=== PATIENT | male | born 1955 | race Asian ===

== ENCOUNTER → 2016-09-25 13:50 | Outpatient (CLI) | payer BC ==
[~2016-09-25 13:50] MED LIST: CLARITIN 10 MG10 MG PO; MYAMBUTOL400 MG PO; RIFADIN300 MG PO; SCOT-TUSSI10 MG/5 ML PO; SINGULAIR10 MG PO; SYMBICORT 16010.2 GM INH; TESSALON PERLE100 MG PO
[2016-09-25 14:43] LABS: BASOPHILS 0.2 % (0.0-2.0); EOSINOPHILS 0.9 % (0-7); HEMATOCRIT 40.4 % (42.0-54.0); HEMOGLOBIN 14.5 g/dL (13.5-17.5); LYMPHOCYTES 29.2 % (15-50); MCH 35.4 pg (26.0-34.0); MCHC 35.9 g/dL (31.0-37.0); MCV 98.5 fL (80.0-100.0); MEAN PLATELET VOLUME 8.9 fL (7.4-10.4); MONOCYTES 13.9 % (2-11); NEUTROPHILS 55.8 % (40-80); PLATELET COUNT 227 10x3/uL (130-400); RDW 12.3 % (11.5-14.5); WBC 4.3 10x3/uL (4.8-10.8)
[2016-09-25 14:55] LABS: ALBUMIN 3.5 g/dL (3.4-5.0); BILIRUBIN - DIRECT 0.22 mg/dL (0.00-0.30); BILIRUBIN - INDIRECT 0.48 mg/dL (0.00-1.00); BILIRUBIN - TOTAL 0.7 mg/dL (0.2-1.3); PROTEIN - SERUM 7.5 g/dL (6.4-8.2)
== END | disposition home or self-care (01) ==
LOC: D.RAD 09-21 09:15
PROVIDERS: Internal Medicine Pulmonary Disease
DX: J44.9 Chronic obstructive pulmonary disease, unspecified (principal)

== ENCOUNTER → 2017-03-23 08:26 | Outpatient (CLI) | payer BC | END | disposition home or self-care (01) | LOC: D.RT 08:26 | DX: J47.9 Bronchiectasis, uncomplicated (principal) ==

== ENCOUNTER → 2017-09-17 08:57 | Outpatient (CLI) | payer BC ==
[~2017-09-17 08:57] MED LIST changes: +BIAXIN 500 MG500 MG PO; +FLOMAX0.4 MG PO; +FLUTICASONE PRO16 GM NASAL; +GLUCOPHAGE500 MG PO; +PROTONIX40 MG PO
[2017-09-17 09:37] LABS: BASOPHILS 0.2 % (0-2); EOSINOPHILS 0.4 % (0-7); HEMATOCRIT 42.6 % (42.0-54.0); HEMOGLOBIN 14.8 g/dL (13.5-17.5); IMMATURE GRANULOCYTES 0.2 % (0-5); LYMPHOCYTES 24.9 % (15-50); MCHC 34.7 g/dL (31.0-37.0); MCV 100.7 fL (80.0-100.0); NEUTROPHILS 64.3 % (40-80); PLATELET COUNT 204 10x3/uL (130-400); RBC 4.23 10x6/uL (4.20-6.10); RDW 12.4 % (11.5-14.5)
[2017-09-17 09:56] LABS: ALBUMIN 3.6 g/dL (3.4-5.0); ALKALINE PHOSPHATASE 48 U/L (46-116); ALT (SGPT) 44 U/L (10-68); BILIRUBIN - TOTAL 0.28 mg/dL (0.2-1.3); CALC OSMOLALITY 278 mosm/kg (275-300); CALCIUM 8.4 mg/dL (8.5-10.1); CARBON DIOXIDE 32.3 mmol/L (21.0-32.0); CHLORIDE - SERUM 102 mmol/L (98-107); CREATININE - SERUM 0.8 mg/dL (0.6-1.3); GLUCOSE 91 mg/dL (74-106); POTASSIUM - SERUM 3.7 mmol/L (3.5-5.1); PROTEIN - SERUM 7.9 g/dL (6.4-8.2); SODIUM 138 mmol/L (136-145); UREA NITROGEN 21 mg/dL (7-18); eGFR NON AFRICAN AMERICAN > 90 mL/min (90-120)
== END | disposition home or self-care (01) ==
LOC: D.LAB 08:57 → D.RAD 10:00
PROVIDERS: Internal Medicine Pulmonary Disease
DX: A31.0 Pulmonary mycobacterial infection (principal)

== ENCOUNTER 2017-10-20 20:30 | Inpatient (IN) | payer BC ==
[~2017-10-20] VITALS: Ht 152.4 cm; Wt 44.9 kg
[~2017-10-20 20:30] MED LIST changes: -BIAXIN 500 MG500 MG PO; -FLOMAX0.4 MG PO; -FLUTICASONE PRO16 GM NASAL; -GLUCOPHAGE500 MG PO; -PROTONIX40 MG PO
[2017-10-20 21:23] LABS: BASOPHILS 0.2 % (0-2); EOSINOPHILS 0.5 % (0-7); HEMATOCRIT 43.5 % (42.0-54.0); HEMOGLOBIN 15.3 g/dL (13.5-17.5); MCHC 35.2 g/dL (31.0-37.0); MCV 99.5 fL (80.0-100.0); MEAN PLATELET VOLUME 9.1 fL (7.4-10.4); MONOCYTES 12.9 % (2-11); NEUTROPHILS 57.4 % (40-80); PLATELET COUNT 223 10x3/uL (130-400); RBC 4.37 10x6/uL (4.20-6.10); RDW 12.2 % (11.5-14.5); WBC 5.7 10x3/uL (4.8-10.8)
[2017-10-20 21:37] LABS: ALBUMIN 3.8 g/dL (3.4-5.0); ANION GAP 13.1 mmol/L (8-16); BILIRUBIN - TOTAL 0.23 mg/dL (0.2-1.3); CALCIUM 8.5 mg/dL (8.5-10.1); CARBON DIOXIDE 30.6 mmol/L (21.0-32.0); CREATININE - SERUM 1.1 mg/dL (0.6-1.3); POTASSIUM - SERUM 3.7 mmol/L (3.5-5.1); PROTEIN - SERUM 8.1 g/dL (6.4-8.2)
[2017-10-20 22:08] LABS: INR 1.05 (0.85-1.17); PROTIME 13.3 SECONDS (11.6-15.0)
[2017-10-20 22:19] LABS: APTT 31.2 SECONDS (22.8-39.4)
[2017-10-21 04:00] VITALS: BP 149/84
[2017-10-21 08:13] VITALS: BP 163/100; BMI 10.7
[2017-10-21 08:18] VITALS: BP 150/79
[2017-10-21] MEDS ORDERED: GLUCOPHAGE500 MG PO (09:37)
[2017-10-21] MEDS ORDERED: BIAXIN 500 MG500 MG PO (09:43)
[2017-10-21] MEDS ORDERED: FLOMAX0.4 MG PO (09:45)
[2017-10-21 12:44] VITALS: BP 131/75
[2017-10-21 13:12] VITALS: BMI 19.3
[2017-10-21 16:14] VITALS: BP 129/68
[2017-10-21 17:21] VITALS: Ht 152.4 cm; Wt 44.9 kg
[2017-10-21 20:58] VITALS: BP 166/86
[2017-10-22 00:29] VITALS: BP 120/64
[2017-10-22 05:03] VITALS: BP 124/68
[2017-10-22 08:10] VITALS: BP 130/75
[2017-10-22 11:42] VITALS: BP 143/77
[2017-10-22 16:09] VITALS: BP 148/75
[2017-10-22 20:02] VITALS: BP 138/76
[2017-10-23] VITALS (7 sets, daily range): BP systolic 133–157; BP diastolic 70–82
[2017-10-24 05:00] LABS: BASOPHILS 0.3 % (0-2); EOSINOPHILS 0.9 % (0-7); HEMATOCRIT 44.5 % (42.0-54.0); HEMOGLOBIN 15.6 g/dL (13.5-17.5); IMMATURE GRANULOCYTES 0.2 % (0-5); LYMPHOCYTES 19.4 % (15-50); MCH 34.8 pg (26.0-34.0); MCHC 35.1 g/dL (31.0-37.0); MCV 99.3 fL (80.0-100.0); MEAN PLATELET VOLUME 9.3 fL (7.4-10.4); MONOCYTES 7.8 % (2-11); NEUTROPHILS 71.4 % (40-80); PLATELET COUNT 229 10x3/uL (130-400); RBC 4.48 10x6/uL (4.20-6.10); RDW 12.4 % (11.5-14.5); WBC 5.9 10x3/uL (4.8-10.8)
[2017-10-24 05:24] LABS: ALBUMIN 3.1 g/dL (3.4-5.0); ALKALINE PHOSPHATASE 40 U/L (46-116); ALT (SGPT) 29 U/L (10-68); BILIRUBIN - TOTAL 0.42 mg/dL (0.2-1.3); CALC OSMOLALITY 282 mosm/kg (275-300); CALCIUM 8.1 mg/dL (8.5-10.1); CARBON DIOXIDE 29.5 mmol/L (21.0-32.0); CHLORIDE - SERUM 103 mmol/L (98-107); POTASSIUM - SERUM 3.5 mmol/L (3.5-5.1); PROTEIN - SERUM 7.3 g/dL (6.4-8.2); SODIUM 141 mmol/L (136-145); UREA NITROGEN 17 mg/dL (7-18); eGFR NON AFRICAN AMERICAN 81 mL/min (90-120)
[2017-10-24 05:27] LABS: GLUCOSE 104 mg/dL (74-106)
[2017-10-24 08:24] VITALS: BP 129/71
[2017-10-24 12:06] VITALS: BP 142/82
[2017-10-24 22:12] VITALS: BP 150/80
[2017-10-25 02:11] VITALS: BP 142/81
[2017-10-25 05:37] LABS: BASOPHILS 0.2 % (0-2); EOSINOPHILS 0.6 % (0-7); HEMATOCRIT 45.3 % (42.0-54.0); HEMOGLOBIN 15.9 g/dL (13.5-17.5); IMMATURE GRANULOCYTES 0.2 % (0-5); LYMPHOCYTES 18.8 % (15-50); MCH 35.3 pg (26.0-34.0); MCHC 35.1 g/dL (31.0-37.0); MCV 100.4 fL (80.0-100.0); MEAN PLATELET VOLUME 8.9 fL (7.4-10.4); MONOCYTES 10.3 % (2-11); NEUTROPHILS 69.9 % (40-80); PLATELET COUNT 202 10x3/uL (130-400); RBC 4.51 10x6/uL (4.20-6.10); RDW 12.4 % (11.5-14.5); WBC 5.2 10x3/uL (4.8-10.8)
[2017-10-25 06:14] LABS: ALBUMIN 3.1 g/dL (3.4-5.0); ALKALINE PHOSPHATASE 42 U/L (46-116); ALT (SGPT) 25 U/L (10-68); CALC OSMOLALITY 272 mosm/kg (275-300); CALCIUM 8.4 mg/dL (8.5-10.1); CARBON DIOXIDE 27.1 mmol/L (21.0-32.0); CHLORIDE - SERUM 103 mmol/L (98-107); CREATININE - SERUM 0.9 mg/dL (0.6-1.3); FERRITIN 146 ng/mL (3-244); GLUCOSE 99 mg/dL (74-106); PROTEIN - SERUM 7.4 g/dL (6.4-8.2); SODIUM 136 mmol/L (136-145); UREA NITROGEN 14 mg/dL (7-18); eGFR NON AFRICAN AMERICAN > 90 mL/min (90-120)
[2017-10-25 06:15] LABS: % SATURATION 50 % (15-55); IRON 85 ug/dl (35-150); TOTAL IRON BIND CAPACITY 170 ug/dl (260-445); UNSAT IRON BIND CAPACITY 85 ug/dl (150-375)
[2017-10-25 06:23] LABS: POTASSIUM - SERUM 4.3 mmol/L (3.5-5.1)
[2017-10-25 06:42] VITALS: BP 110/50
[2017-10-25 10:36] VITALS: BP 145/72
[2017-10-25 13:35] VITALS: BP 120/74
[2017-10-25 18:39] VITALS: BP 143/85
[2017-10-25 21:19] VITALS: BP 125/68
[2017-10-26 00:41] VITALS: BP 134/64
[2017-10-26 05:01] VITALS: BP 138/74
[2017-10-26 06:13] LABS: BASOPHILS 0.2 % (0-2); EOSINOPHILS 0.7 % (0-7); HEMATOCRIT 44.6 % (42.0-54.0); HEMOGLOBIN 15.7 g/dL (13.5-17.5); IMMATURE GRANULOCYTES 0.2 % (0-5); LYMPHOCYTES 23.6 % (15-50); MCH 34.7 pg (26.0-34.0); MCHC 35.2 g/dL (31.0-37.0); MCV 98.7 fL (80.0-100.0); MEAN PLATELET VOLUME 9.3 fL (7.4-10.4); MONOCYTES 7.8 % (2-11); NEUTROPHILS 67.5 % (40-80); PLATELET COUNT 223 10x3/uL (130-400); RBC 4.52 10x6/uL (4.20-6.10); RDW 12.3 % (11.5-14.5); WBC 5.9 10x3/uL (4.8-10.8)
[2017-10-26 06:33] LABS: ALBUMIN 3.2 g/dL (3.4-5.0); ALKALINE PHOSPHATASE 40 U/L (46-116); ALT (SGPT) 27 U/L (10-68); BILIRUBIN - TOTAL 0.44 mg/dL (0.2-1.3); CALC OSMOLALITY 281 mosm/kg (275-300); CALCIUM 8.3 mg/dL (8.5-10.1); CHLORIDE - SERUM 104 mmol/L (98-107); GLUCOSE 94 mg/dL (74-106); MAGNESIUM - SERUM 2.3 mg/dL (1.8-2.4); POTASSIUM - SERUM 3.6 mmol/L (3.5-5.1); PROTEIN - SERUM 7.4 g/dL (6.4-8.2); SODIUM 141 mmol/L (136-145); UREA NITROGEN 14 mg/dL (7-18); eGFR NON AFRICAN AMERICAN 81 mL/min (90-120)
[2017-10-26 09:10] VITALS: BP 141/75
[2017-10-26 13:51] VITALS: BP 141/78
[2017-10-26 20:44] VITALS: BP 117/74
[2017-10-26 22:26] LABS: APPEARANCE CLEAR (CLEAR); BILIRUBIN NEGATIVE (NEGATIVE); COLOR YELLOW (YELLOW); GLUCOSE NEGATIVE (NEGATIVE); KETONE NEGATIVE (NEGATIVE); NITRITE NEGATIVE (NEGATIVE); PROTEIN NEGATIVE (NEGATIVE); UROBILINOGEN NORMAL (NORMAL)
[2017-10-27 04:36] LABS: BASOPHILS 0.2 % (0-2); EOSINOPHILS 0.5 % (0-7); HEMATOCRIT 46.5 % (42.0-54.0); HEMOGLOBIN 16.8 g/dL (13.5-17.5); IMMATURE GRANULOCYTES 0.2 % (0-5); LYMPHOCYTES 33.6 % (15-50); MCH 35.6 pg (26.0-34.0); MCHC 36.1 g/dL (31.0-37.0); MCV 98.5 fL (80.0-100.0); MONOCYTES 7.1 % (2-11); NEUTROPHILS 58.4 % (40-80); PLATELET COUNT 216 10x3/uL (130-400); RBC 4.72 10x6/uL (4.20-6.10); RDW 12.2 % (11.5-14.5)
[2017-10-27 04:48] LABS: ALBUMIN 3.5 g/dL (3.4-5.0); CALC OSMOLALITY 279 mosm/kg (275-300); CALCIUM 8.7 mg/dL (8.5-10.1); CARBON DIOXIDE 30.8 mmol/L (21.0-32.0); CHLORIDE - SERUM 102 mmol/L (98-107); CREATININE - SERUM 0.9 mg/dL (0.6-1.3); GLUCOSE 110 mg/dL (74-106); SODIUM 140 mmol/L (136-145); UREA NITROGEN 12 mg/dL (7-18); eGFR NON AFRICAN AMERICAN > 90 mL/min (90-120)
[2017-10-27 05:00] VITALS: BP 124/74
[2017-10-27 05:11] LABS: ALKALINE PHOSPHATASE 44 U/L (46-116); ALT (SGPT) 31 U/L (10-68); AMYLASE - SERUM 99 U/L (25-115); BILIRUBIN - TOTAL 0.65 mg/dL (0.2-1.3); LIPASE 149 U/L (73-393); POTASSIUM - SERUM 4.2 mmol/L (3.5-5.1); PROTEIN - SERUM 8.1 g/dL (6.4-8.2)
[2017-10-27 08:12] VITALS: BP 140/81
[2017-10-27 11:51] VITALS: BP 131/78
[2017-10-27 16:08] VITALS: BP 148/85
[2017-10-27 20:21] VITALS: BP 137/70
[2017-10-28 01:06] VITALS: BP 148/78
[2017-10-28 04:47] VITALS: BP 154/74
[2017-10-28 06:57] LABS: BASOPHILS 0.2 % (0-2); EOSINOPHILS 0.4 % (0-7); HEMATOCRIT 45.2 % (42.0-54.0); HEMOGLOBIN 16.4 g/dL (13.5-17.5); IMMATURE GRANULOCYTES 0.2 % (0-5); LYMPHOCYTES 25.3 % (15-50); MCH 35.5 pg (26.0-34.0); MCHC 36.3 g/dL (31.0-37.0); MCV 97.8 fL (80.0-100.0); MEAN PLATELET VOLUME 8.9 fL (7.4-10.4); MONOCYTES 6.6 % (2-11); NEUTROPHILS 67.3 % (40-80); PLATELET COUNT 215 10x3/uL (130-400); RBC 4.62 10x6/uL (4.20-6.10); RDW 12.3 % (11.5-14.5); WBC 4.9 10x3/uL (4.8-10.8)
[2017-10-28 07:20] LABS: ALBUMIN 3.3 g/dL (3.4-5.0); ALKALINE PHOSPHATASE 39 U/L (46-116); ALT (SGPT) 30 U/L (10-68); CALC OSMOLALITY 279 mosm/kg (275-300); CALCIUM 8.4 mg/dL (8.5-10.1); CHLORIDE - SERUM 102 mmol/L (98-107); CREATININE - SERUM 0.9 mg/dL (0.6-1.3); GLUCOSE 92 mg/dL (74-106); POTASSIUM - SERUM 3.8 mmol/L (3.5-5.1); PROTEIN - SERUM 7.6 g/dL (6.4-8.2); SODIUM 141 mmol/L (136-145); UREA NITROGEN 11 mg/dL (7-18); eGFR NON AFRICAN AMERICAN > 90 mL/min (90-120)
[2017-10-28 08:02] VITALS: BP 138/81
[2017-10-28 12:24] VITALS: BP 129/74
[2017-10-28] MEDS ORDERED: MYAMBUTOL400 MG PO (14:05)
[2017-10-28] MEDS ORDERED: RIFADIN300 MG PO (14:05)
[2017-10-28] MEDS ORDERED: BIAXIN 500 MG500 MG PO (14:05)
[2017-10-28] MEDS ORDERED: PROTONIX40 MG PO (14:06)
[2017-10-28] MEDS ORDERED: FLUTICASONE PRO16 GM NASAL (14:06)
== END 2017-10-28 19:01 | disposition home or self-care (01) | DRG 191 ==
LOC: D.ER 20:30 → D.MS 23:26 → D.EDHOLD 23:26 → D.MS 10-21 00:03
PROVIDERS: Emergency Medicine; Family Medicine; Internal Medicine Pulmonary Disease
DX: J47.1 Bronchiectasis with (acute) exacerbation (principal); M35.1 Other overlap syndromes; E44.0 Moderate protein-calorie malnutrition; Z68.1 Body mass index [BMI] 19.9 or less, adult; D62 Acute posthemorrhagic anemia; J01.90 Acute sinusitis, unspecified; J30.9 Allergic rhinitis, unspecified; Z87.09 Personal history of other diseases of the respiratory system; R91.1 Solitary pulmonary nodule; N40.0 Benign prostatic hyperplasia without lower urinary tract symptoms; E11.9 Type 2 diabetes mellitus without complications; A31.0 Pulmonary mycobacterial infection

== ENCOUNTER → 2018-10-14 08:15 | Outpatient (CLI) | payer BC ==
[2017-10-21 17:21] VITALS: BMI 19.3
[~2018-10-14 08:15] MED LIST changes: +BIAXIN 500 MG500 MG PO; +FLOMAX0.4 MG PO; +FLUTICASONE PRO16 GM NASAL; +GLUCOPHAGE500 MG PO; +PROTONIX40 MG PO
[2018-10-14 10:28] LABS: BASOPHILS 0.2 % (0-2); EOSINOPHILS 0.2 % (0-7); HEMATOCRIT 41.1 % (42.0-54.0); HEMOGLOBIN 14.5 g/dL (13.5-17.5); IMMATURE GRANULOCYTES 0.2 % (0-5); LYMPHOCYTES 17.9 % (15-50); MCH 34.5 pg (26.0-34.0); MCHC 35.3 g/dL (31.0-37.0); MCV 97.9 fL (80.0-100.0); MONOCYTES 10.5 % (2-11); RDW 12.7 % (11.5-14.5); WBC 5.9 10x3/uL (4.8-10.8)
[2018-10-14 10:59] LABS: PLATELET COUNT 275 10x3/uL (130-400)
== END | disposition home or self-care (01) ==
LOC: D.RT 10-13 11:00 → D.RAD 10-13 11:45 → D.LAB 10-13 13:00 → D.RT 08:15
PROVIDERS: ATTEND Internal Medicine Pulmonary Disease
DX: J44.9 Chronic obstructive pulmonary disease, unspecified (principal); E44.0 Moderate protein-calorie malnutrition; A31.0 Pulmonary mycobacterial infection

== ENCOUNTER 2019-01-23 07:46 | Inpatient (IN) | payer BC ==
[~2019-01-23] VITALS: Ht 152.4 cm; Wt 41.5 kg
[2019-01-23] MEDS ORDERED: ALBUTEROL SULF8.5 GM INH (07:59)
[2019-01-23 08:24] LABS: BASOPHILS 0.1 % (0-2); EOSINOPHILS 0 % (0-7); HEMATOCRIT 43.2 % (42.0-54.0); HEMOGLOBIN 15.4 g/dL (13.5-17.5); IMMATURE GRANULOCYTES 0.2 % (0-5); LYMPHOCYTES 6.9 % (15-50); MCH 34.4 pg (26.0-34.0); MCHC 35.6 g/dL (31.0-37.0); MCV 96.4 fL (80.0-100.0); MEAN PLATELET VOLUME 8.7 fL (7.4-10.4); NEUTROPHILS 84.8 % (40-80); RBC 4.48 10x6/uL (4.20-6.10); RDW 12.9 % (11.5-14.5); WBC 8.6 10x3/uL (4.8-10.8)
[2019-01-23 08:32] LABS: PLATELET COUNT 351 10x3/uL (130-400)
--- NOTE | 2019-01-23 08:35 | NUR ---
[facility] WE[facility] AND LANI COMPLETED
[2019-01-23 08:37] LABS: ALBUMIN 3.7 g/dL (3.4-5.0); ALKALINE PHOSPHATASE 96 U/L (46-116); ALT (SGPT) 25 U/L (10-68); BILIRUBIN - TOTAL 0.31 mg/dL (0.2-1.3); CALC OSMOLALITY 270 mosm/kg (275-300); CALCIUM 8.6 mg/dL (8.5-10.1); CARBON DIOXIDE 33.6 mmol/L (21.0-32.0); CHLORIDE - SERUM 96 mmol/L (98-107); CREATININE - SERUM 0.8 mg/dL (0.6-1.3); GLUCOSE 132 mg/dL (74-106); POTASSIUM - SERUM 3.7 mmol/L (3.5-5.1); PROTEIN - SERUM 9.3 g/dL (6.4-8.2); SODIUM 135 mmol/L (136-145); UREA NITROGEN 11 mg/dL (7-18); eGFR NON AFRICAN AMERICAN > 90 mL/min (90-120)
--- NOTE | 2019-01-23 08:50 | NUR ---
CALLED DAVID PASCUAL. SHE IS FAMILIAR WITH THIS PT. REPORTS HE HAD AFB TESTING COMPLETED ON 02/15/13 RESULTS = MACTRIUM BACTIRIUM AVIOUM "LOOKS LIKE TB, ACTS LIKE TB BUT IS NOT TB. NOT CONTAGIOUS AND NO ISOLATION REQUIRED"
--- NOTE | 2019-01-23 09:45 | NUR ---
SPUTUM CX OBTAINED, LABELED AT BS AND SENT TO LAB
[2019-01-23 09:51] LABS: INR 1.11 (0.85-1.17); PROTIME 13.8 SECONDS (11.6-15.0)
[2019-01-23 09:52] LABS: APTT 36.9 SECONDS (22.8-39.4)
--- NOTE | 2019-01-23 10:00 | NUR ---
REPORT CALLED TO DARWIN LINDSEY BY SBAR FORMAT
[2019-01-23 10:15] VITALS: BP 135/82
--- NOTE | 2019-01-23 10:20 | NUR ---
CALLED HENRY INTERPRETOR #[phone]. EXPL POC TO PT ALL QUESTIONS ANSWERED.
--- NOTE | 2019-01-23 10:20 | NUR ---
RT AT BS FOR SVN
--- NOTE | 2019-01-23 10:30 | NUR ---
TRANSPORTED TO ROOM #2104 VIS W/C CONDITION STABLE
--- NOTE | 2019-01-23 10:34 | MORECARE ---
CASE MANAGEMENT DISCHARGE SUMMARY PATIENT: WALDEMAR EAGLE UNIT: [id number] ADM DATE: 01/23/19 AGE: 63 : 57 SEX: M ROOM/BED: D.2104 AUTHOR: BETTINA PAVON PHYSICIAN: REFERRING PHYSICIAN: RANDY SAMSON MD DATE OF SERVICE: 01/23/19 Discharge Plan Patient Name: WALDEMAR EAGLE [facility] : 1955 Planned Disposition: Home Anticipated Discharge Date: 01/25/19 Discharge Date: Expected LOS: 2 Initial Reviewer: [email or web address] Initial Review Date: 01/23/2019 Generated: 01/23/19 11:34 am Patient Name: WALDEMAR EAGLE Page 08234 at 1034 All edits/amendments must be made on the electronic document DICTATION DATE: 01/23/19 1033 ELECTRICAL INTEGRATOR: JULIETA 01/23/19 1033 RPT#: [id number] DC DATE: STATUS: ADM IN [facility] [address] [place] [address] END OF REPORT
--- NOTE | 2019-01-23 12:05 | MORECARE ---
CASE MANAGEMENT DISCHARGE SUMMARY PATIENT: WALDEMAR EAGLE UNIT: [id number] ADM DATE: 01/23/19 AGE: 63 : 57 SEX: M ROOM/BED: D.2104 AUTHOR: BETTINA PAVON PHYSICIAN: REFERRING PHYSICIAN: RANDY SAMSON MD DATE OF SERVICE: 01/23/19 Discharge Plan Patient Name: WALDEMAR EAGLE [facility] [facility] 1955 Planned Disposition: Home Anticipated Discharge Date: 01/25/19 Discharge Date: Expected LOS: 2 Initial Reviewer: [email or web address] Initial Review Date: 01/23/2019 Generated: 01/23/19 1:05 pm DCPIA - Discharge Planning Initial Assessment Updated by [email or web address]: Nel De Leon on 01/23/19 11:57 am * Is the patient Alert and Oriented? Yes * How many steps to enter\exit or inside your home? One * PCP Dr. Samson * Preadmission Environment Home with Family * ADLs Independent * List name and contact numbers for known caregivers / representatives who currently or will assist patient after discharge: Marylou Orellana brother - [phone] [facility] sister - [phone] * Verbal permission to speak to the caregivers and representatives has been obtained from the patient. Yes * Community resources currently utilized None * Additional services required to return to the preadmission environment? No * Can the patient safely return to the preadmission environment? Yes * Has this patient been hospitalized within the prior 30 days at any hospital? No Last DP export: 01/23/19 9:34 a Patient Name: WALDEMAR EAGLE Page 66310 at 1205 All edits/amendments must be made on the electronic document DICTATION DATE: 01/23/19 1205 SENIOR SAS PROGRAMMER: JULIETA 01/23/19 1205 RPT#: [id number] DC DATE: STATUS: ADM IN [facility] [address] [place] [address] END OF REPORT
--- NOTE | 2019-01-23 13:04 | MORECARE ---
CASE MANAGEMENT DISCHARGE SUMMARY PATIENT: WALDEMAR EAGLE UNIT: [id number] ADM DATE: 01/23/19 AGE: 63 : 57 SEX: M ROOM/BED: D.2103 AUTHOR: LIBRADODOC PHYSICIAN: REFERRING PHYSICIAN: RANDY SAMSON MD DATE OF SERVICE: 01/23/19 Discharge Plan Patient Name: WALDEMAR EAGLE Facility: [facility]:[place] : 1955 Planned Disposition: Home Anticipated Discharge Date: 01/25/19 Discharge Date: Expected LOS: 2 Initial Reviewer: [email or web address] Initial Review Date: 01/23/2019 Generated: 01/23/19 2:03 pm Comments DCP- Discharge Planning Updated by [email or web address]: Nel De Leon on 01/23/19 11:[address] Patient Name: WALDEMAR EAGLE Admission Status: ER Accout number: [id number] Admission Date: 01-23-2019 : 1955 Admission Diagnosis: Attending: RANDY SAMSON Current LOS: 1 Anticipated DC Date: 01-25-2019 Planned Disposition: Home Primary Insurance: [employer] EXCHANGE Discharge Planning Comments: CM met with patient and his sister to complete initial dc planning assessment. The patient and his sister speak very limited Latvian and we communicated through an remigio on their cell phones. CM educated patient on the CM role and verbal consent given by patient to complete assessment. CM verified patient's address, phone number, and emergency contact phone numbers. Patient lives at home with his sister. He is independent in his care at home. At discharge patient plans to return to his sisters and feels this is a safe discharge. CM discussed availability of home health, rehab services, and medical equipment. Patient denied known discharge needs at this time. Patient reports he will transport himself home at time of discharge. CM will continue to follow and will assist as needed with dc plans/needs. Object Oriented Programmer: Nel De Leon RN, [facility] DCPIA - Discharge Planning Initial Assessment Updated by [email or web address]: Nel De Leon on 01/23/19 11:57 am * Is the patient Alert and Oriented? Yes * How many steps to enter\exit or inside your home? One * PCP Dr. Samson * Preadmission Environment Home with Family * ADLs Independent * List name and contact numbers for known caregivers / representatives who currently or will assist patient after discharge: Marylou Orellana - brother - [phone] Monicayuri Paul sister - [phone] * Verbal permission to speak to the caregivers and representatives has been obtained from the patient. Yes * Community resources currently utilized None * Additional services required to return to the preadmission environment? No * Can the patient safely return to the preadmission environment? Yes * Has this patient been hospitalized within the prior 30 days at any hospital? No Last DP export: 01/23/19 11:05 a Patient Name: WALDEMAR EAGLE Page 93357 at 1304 All edits/amendments must be made on the electronic document DICTATION DATE: 01/23/19 1303 GLASS MAKER: JULIETA 01/23/19 1303 RPT#: [id number] DC DATE: STATUS: ADM IN [facility] [address] [place] [address] END OF REPORT
[2019-01-23 13:17] VITALS: BP 130/82; BMI 18.7
--- NOTE | 2019-01-23 13:28 | NUR ---
PT ARRIVED FROM ED VIA WC. PT DOES NOT SPEAK [place]. INTERUPTER LINE AT BEDSIDE BUT PHONE WILL NOT PLUG INTO DENICE. CARMENERING NOTIFIED. TO COMMUNICATE WITH PT, HE HAS A PHONE SUE THAT TRANSLATES INTO [place]. PT IS ALERT AND AWAKE. SEE ADMISSION ASSESSMENT FOR FURTHER EVAL.
--- NOTE | 2019-01-23 19:00 | NUR ---
PATIENT SITTING UP IN BED. PATIENT DOES NOT SPEAK SINHAL[place]. SPEAKS VERY LITTLE SINHALA. AT THIS TIME PATIENT HAS NO COMPLAINTS. NO DISTRESS NOTED.
[2019-01-23 20:00] VITALS: BP 132/79
[2019-01-24 00:18] VITALS: BP 111/80
--- NOTE | 2019-01-24 02:00 | NUR ---
PATIENT LAYING IN BED. EYES CLOSED, CHEST RISING AND FALLING. NO DISTRESS NOTED.
[2019-01-24 04:00] VITALS: BP 149/85
[2019-01-24 05:19] LABS: BASOPHILS 0.2 % (0-2); EOSINOPHILS 0.2 % (0-7); HEMATOCRIT 38.9 % (42.0-54.0); HEMOGLOBIN 13.6 g/dL (13.5-17.5); IMMATURE GRANULOCYTES 0.2 % (0-5); LYMPHOCYTES 8.9 % (15-50); MCH 33.7 pg (26.0-34.0); MCV 96.3 fL (80.0-100.0); MEAN PLATELET VOLUME 8.8 fL (7.4-10.4); MONOCYTES 7.7 % (2-11); NEUTROPHILS 82.8 % (40-80); PLATELET COUNT 300 10x3/uL (130-400); RBC 4.04 10x6/uL (4.20-6.10); RDW 12.7 % (11.5-14.5)
[2019-01-24 05:30] LABS: WBC 6.4 10x3/uL (4.8-10.8)
[2019-01-24 06:02] LABS: ALBUMIN 2.9 g/dL (3.4-5.0); ALKALINE PHOSPHATASE 74 U/L (46-116); ALT (SGPT) 20 U/L (10-68); BILIRUBIN - TOTAL 0.29 mg/dL (0.2-1.3); CALC OSMOLALITY 278 mosm/kg (275-300); CALCIUM 8.1 mg/dL (8.5-10.1); CARBON DIOXIDE 30.3 mmol/L (21.0-32.0); CHLORIDE - SERUM 103 mmol/L (98-107); CREATININE - SERUM 0.7 mg/dL (0.6-1.3); GLUCOSE 112 mg/dL (74-106); POTASSIUM - SERUM 3.5 mmol/L (3.5-5.1); PROTEIN - SERUM 7.5 g/dL (6.4-8.2); SODIUM 140 mmol/L (136-145); UREA NITROGEN 9 mg/dL (7-18); eGFR NON AFRICAN AMERICAN > 90 mL/min (90-120)
--- NOTE | 2019-01-24 06:12 | NUR ---
PATIENT LAYING IN BED. EYES CLOSED, CHEST RISING AND FALLING. NO DISTRESS NOTED.
--- NOTE | 2019-01-24 07:03 | NUR ---
INITIAL ROUNDING, WHITE BOARD UPDATED. PATIENT IS AWAKE AND SEMI FOWLERS IN BED LISTENING TO HIS CELL PHONE, MAYBE THE NEWS. HE DENIES PAIN. CALL LIGHT IN REACH. NO COUGHING NOTED AT THIS TIME.
[2019-01-24 08:00] VITALS: BP 144/78
[2019-01-24 12:00] VITALS: BP 139/68
[2019-01-24 15:45] VITALS: BP 133/84
[2019-01-24 18:08] LABS: AFB SPECIMEN PROCESSING Concentration (())
--- NOTE | 2019-01-24 19:00 | NUR ---
PATIENT SITTING UP IN BED. NO COMPLAINTS AT THIS TIME. NO DISTRESS NOTED.
[2019-01-24 20:00] VITALS: BP 141/81
--- NOTE | 2019-01-24 20:30 | NUR ---
FOUND VANCOMYCIN HANGING ON PATIENT'S IV POLE. VANCOMYCIN BAG WAS FULL. CHARGE NURSE MADE AWARE. WAITING TO ADMINISTER UNTIL NEXT DOSE.
[2019-01-25] VITALS: BP 135/74
--- NOTE | 2019-01-25 03:22 | NUR ---
PATIENT LAYING IN BED. EYES CLOSED, CHEST RISING AND FALLING. NO DISTRESS NOTED.
[2019-01-25 04:00] VITALS: BP 136/82
--- NOTE | 2019-01-25 07:10 | NUR ---
INITIAL ROUNDING, WHITE BOARD UPDATED. PATIENT DENIES PAIN, CALL LIGHT IN REACH,
[2019-01-25 09:55] VITALS: BP 110/71
--- NOTE | 2019-01-25 10:16 | NUR ---
DR SAMSON HERE TO SEE PATIENT. SPUTUM SAMPLE BEING COLLECTED. WITH RESPIRATORY DIRECTOR, PATIENT DENIES ANY NEEDS/QUESTIONS
[2019-01-25 12:53] VITALS: BP 108/75
[2019-01-25 16:44] VITALS: BP 112/68
[2019-01-25 17:08] LABS: FUNGUS STAIN Final report (())
--- NOTE | 2019-01-25 19:00 | NUR ---
PATIENT LAYING IN BED. FAMILY AT BEDSIDE. NO COMPLAINTS AT THIS TIME. NO DISTRESS NOTED.
[2019-01-25 20:00] VITALS: BP 139/803; BP 147/80
[2019-01-26 04:00] VITALS: BP 136/74
--- NOTE | 2019-01-26 08:10 | NUR ---
INITIAL ROUNDING, PATIENT IN BED, LIGHTS OFF, NO RADIO ON AT THIS TIME. WHITE BOARD UPDATED AT THIS TIME. PATIENT DENIES PAIN. CALL LIGHT IN REACH
[2019-01-26 08:22] VITALS: BP 126/73
[2019-01-26 13:22] VITALS: BP 128/74
--- NOTE | 2019-01-26 17:30 | NUR ---
PATIENT GIVEN ZOFRAN AFTER HEARING HIM GAGING, SMALL AMT EMESIS BLOOD TINGED NOTED IN BLUE BAG
[2019-01-26 17:31] VITALS: BP 136/72
[2019-01-26 20:00] VITALS: BP 126/69
[2019-01-27] VITALS: BP 133/73
[2019-01-27 04:00] VITALS: BP 133/87
[2019-01-27 04:51] LABS: BASOPHILS 0.1 % (0-2); EOSINOPHILS 0.4 % (0-7); HEMATOCRIT 38.2 % (42.0-54.0); HEMOGLOBIN 13.4 g/dL (13.5-17.5); IMMATURE GRANULOCYTES 0.1 % (0-5); LYMPHOCYTES 13.5 % (15-50); MCH 33.7 pg (26.0-34.0); MCHC 35.1 g/dL (31.0-37.0); MEAN PLATELET VOLUME 8.7 fL (7.4-10.4); MONOCYTES 8.1 % (2-11); NEUTROPHILS 77.8 % (40-80); PLATELET COUNT 315 10x3/uL (130-400); RBC 3.98 10x6/uL (4.20-6.10); RDW 12.8 % (11.5-14.5); WBC 7.6 10x3/uL (4.8-10.8)
[2019-01-27 05:04] LABS: ALBUMIN 2.6 g/dL (3.4-5.0); ALKALINE PHOSPHATASE 71 U/L (46-116); ALT (SGPT) 18 U/L (10-68); AMYLASE - SERUM 97 U/L (25-115); BILIRUBIN - TOTAL 0.27 mg/dL (0.2-1.3); CALC OSMOLALITY 270 mosm/kg (275-300); CALCIUM 8.1 mg/dL (8.5-10.1); CARBON DIOXIDE 33.5 mmol/L (21.0-32.0); CHLORIDE - SERUM 100 mmol/L (98-107); CREATININE - SERUM 0.7 mg/dL (0.6-1.3); GLUCOSE 93 mg/dL (74-106); LIPASE 102 U/L (73-393); MAGNESIUM - SERUM 2.3 mg/dL (1.8-2.4); PHOSPHOROUS 3.2 mg/dL (2.5-4.9); POTASSIUM - SERUM 3.8 mmol/L (3.5-5.1); SODIUM 137 mmol/L (136-145); UREA NITROGEN 5 mg/dL (7-18); eGFR NON AFRICAN AMERICAN > 90 mL/min (90-120)
--- NOTE | 2019-01-27 05:42 | NUR ---
I have reviewed this patient and I concur with the Shift Assessment completed by the Licensed Practical Nurse today this shift.
--- NOTE | 2019-01-27 07:10 | NUR ---
REPORT RECEIVED FROM PASTRY COOK APPRENTICE AND PATIENT CARE ASSUMED. PATIENT LAYING IN BED ON BACK WITH EYES CLOSED AND BREATHING EVENLY. PATIENT IS STABLE AND VSS. WILL CONTINUE WITH PLAN OF CARE.
[2019-01-27 09:49] VITALS: BP 121/71
[2019-01-27 11:08] VITALS: Ht 152.4 cm; Wt 41.5 kg
[2019-01-27 12:21] VITALS: BP 150/84
--- NOTE | 2019-01-27 17:30 | NUR ---
PATIENT IS STABLE AND UNCHANGED. PATIENT DENIES ANY NEEDS OR PAIN. WILL CONTINUE TO MONITOR.
[2019-01-27 17:31] VITALS: BP 145/76
[2019-01-27 18:08] LABS: ACID FAST SMEAR Negative (()); AFB SPECIMEN PROCESSING Concentration (())
--- NOTE | 2019-01-27 19:40 | NUR ---
PT IS RESTING IN BED WITH EYES OPEN. PT SMILES WHEN SPOKEN TO. REPORTED THAT PT DOES NOT SPEAK ANY HUNGARIAN. HE IS ALERT. NO ACUTE DISTRESS NOTED. IV IS INFUSING TO LFA WITHOUT DIFFICULTY. NO REDNESS OR EDEMA NOTED AT THE INSERTION SITE. TELEMETRY UNIT IS ON AND INTACT. SR'S ARE UP X 2 IN BED. CALL LIGHT AND BEDSIDE TABLE ARE WITHIN EASY REACH. PT STATED "THANK YOU" WHEN I WAS EXITING THE ROOM.
[2019-01-27 20:00] VITALS: BP 118/76
--- NOTE | 2019-01-27 22:29 | NUR ---
PT IS RESTING IN BED WATCHING TV. NO ACUTE DISTRESS NOTED.
[2019-01-28] VITALS: BP 121/72
--- NOTE | 2019-01-28 01:56 | NUR ---
RESTING IN BED WITH EYES CLOSED.
--- NOTE | 2019-01-28 03:59 | NUR ---
I have reviewed this patient and I concur with the Shift Assessment completed by the Licensed Practical Nurse today this shift.
[2019-01-28 04:28] LABS: BASOPHILS 0.2 % (0-2); EOSINOPHILS 0.9 % (0-7); HEMATOCRIT 38.9 % (42.0-54.0); HEMOGLOBIN 13.6 g/dL (13.5-17.5); IMMATURE GRANULOCYTES 0.2 % (0-5); LYMPHOCYTES 16.7 % (15-50); MCH 33.5 pg (26.0-34.0); MCV 95.8 fL (80.0-100.0); MEAN PLATELET VOLUME 8.5 fL (7.4-10.4); MONOCYTES 11.7 % (2-11); NEUTROPHILS 70.3 % (40-80); PLATELET COUNT 295 10x3/uL (130-400); RBC 4.06 10x6/uL (4.20-6.10); RDW 12.6 % (11.5-14.5)
[2019-01-28 04:30] VITALS: BP 115/69
[2019-01-28 04:43] LABS: WBC 5.5 10x3/uL (4.8-10.8)
[2019-01-28 04:52] LABS: CALC OSMOLALITY 266 mosm/kg (275-300); CALCIUM 8.3 mg/dL (8.5-10.1); CARBON DIOXIDE 32.3 mmol/L (21.0-32.0); CHLORIDE - SERUM 100 mmol/L (98-107); CREATININE - SERUM 0.7 mg/dL (0.6-1.3); GLUCOSE 105 mg/dL (74-106); MAGNESIUM - SERUM 2.3 mg/dL (1.8-2.4); PHOSPHOROUS 3.3 mg/dL (2.5-4.9); POTASSIUM - SERUM 3.9 mmol/L (3.5-5.1); SODIUM 135 mmol/L (136-145); UREA NITROGEN 5 mg/dL (7-18); eGFR NON AFRICAN AMERICAN > 90 mL/min (90-120)
--- NOTE | 2019-01-28 07:19 | NUR ---
PT AWAKE AND ORIENTED TO THE BEST OF MY KNOWLEDGE. STATES NO COMPLAINTS OR CONCERNS THIS MORNING. NO FAMILY AT BEDSIDE. CL IN REACH, SRX2.
[2019-01-28 08:06] VITALS: BP 116/78
[2019-01-28 12:26] VITALS: BP 120/74
[2019-01-28 15:59] VITALS: BP 122/79
--- NOTE | 2019-01-28 16:20 | NUR ---
PT HAS BEEN AWAKE AND ORIENTED. HE DID THROW UP ONCE THIS MORNING BUT USED THE RADAR TECHNICIAN PHONE TO TELL US THAT IT IS BECAUSE HE CAN'T TAKE HIS METPHORMIN WITH HIS OTHER PILLS, HE NEEDS TO TKAE IT SEPERATELY SO THAT HE WILL NOT BECOME NAUSEATED. NO COMPLAINTS/CONCERNS VOICED TODAY, NO FAMILY PRESENT AT THIS TIME OR THROUGHOUT THE DAY. CL IN REACH, SRX2.
[2019-01-28 20:00] VITALS: BP 134/81
--- NOTE | 2019-01-28 23:17 | NUR ---
INITIAL ROUNDS COMPLETED AT 1915 HRS. DENIES ANY DISCOMFORT. PT SPEAKS VERY LITTLE SWEDISH AND USES A DIRECTOR PRINT PHONE WHEN NEEDED. ASSESSMENT COMPLETED AT 2014 HRS. VSS. ALERT AND ORIENTED. LUNGS CTA. SR PER CM HR 73. ABD SOFT WITH ACTIVE BS NOTED. PALPABLE PERIPHERAL PULSES. IV TO LFA WITH D51/2NS AT 75CC/HR. IV PATENT. IV TO RFA SL. PM MEDS GIVEN. PT VOMITING BILE INTO TRASH CAN AT 2255 H RS. ZOFRAN 4MG SIVP GIVEN. PT CURRENTLY RESTING WITH EYES CLOSED. RESP EVEN AND REGULAR. SR UP X2, CALL LIGHT WITHIN REACH.
[2019-01-29] VITALS: BP 133/82
--- NOTE | 2019-01-29 00:14 | NUR ---
PT RESTING WITH EYES CLOSED. RESP EVEN AND REGULAR. SR UP X2, CALL LIGHT WITHIN REACH.
--- NOTE | 2019-01-29 02:17 | NUR ---
PT RESTING WITH EYES CLOSED. RESP EVEN AND REGULAR. SR UP X2, CALL LIGHT WITHIN REACH.
--- NOTE | 2019-01-29 04:03 | NUR ---
PT RESTING WITH EYES CLOSED. RESP EVEN AND REGULAR. SR UP X2, CALL LIGHT WITHIN REACH.
[2019-01-29 04:30] VITALS: BP 129/79
[2019-01-29 05:13] LABS: BASOPHILS 0.1 % (0-2); EOSINOPHILS 0.3 % (0-7); HEMATOCRIT 43.5 % (42.0-54.0); HEMOGLOBIN 15.3 g/dL (13.5-17.5); IMMATURE GRANULOCYTES 0.2 % (0-5); LYMPHOCYTES 25.8 % (15-50); MCH 34.2 pg (26.0-34.0); MCHC 35.2 g/dL (31.0-37.0); MCV 97.3 fL (80.0-100.0); MEAN PLATELET VOLUME 8.8 fL (7.4-10.4); MONOCYTES 9.7 % (2-11); NEUTROPHILS 63.9 % (40-80); PLATELET COUNT 322 10x3/uL (130-400); RBC 4.47 10x6/uL (4.20-6.10); RDW 12.7 % (11.5-14.5)
[2019-01-29 05:18] LABS: WBC 8.6 10x3/uL (4.8-10.8)
[2019-01-29 05:23] LABS: CALC OSMOLALITY 269 mosm/kg (275-300); CALCIUM 8.9 mg/dL (8.5-10.1); CARBON DIOXIDE 34.9 mmol/L (21.0-32.0); CHLORIDE - SERUM 98 mmol/L (98-107); GLUCOSE 116 mg/dL (74-106); POTASSIUM - SERUM 3.8 mmol/L (3.5-5.1); SODIUM 136 mmol/L (136-145); UREA NITROGEN 5 mg/dL (7-18)
[2019-01-29 05:33] LABS: CREATININE - SERUM 0.9 mg/dL (0.6-1.3); eGFR NON AFRICAN AMERICAN > 90 mL/min (90-120)
--- NOTE | 2019-01-29 06:28 | NUR ---
VSS THROUGHOUT NIGHT. SR PER CM. ZOFRAN ALLEVIATED PT'S N.V. NEEDS MET; WILL CONTINUE TO MONITOR.
--- NOTE | 2019-01-29 07:09 | NUR ---
PT AWAKE AND ORIENTED, LYING IN BED RECIEVING A BREATHING TX. NO COMPLAINTS CONCERNS OR QUESTIONS THIS A.M. CL IN REACH,SR X2.
[2019-01-29 08:49] VITALS: BP 120/70
--- NOTE | 2019-01-29 10:44 | NUR ---
PT REQUESTED TO TAKE HIS OTHER MEDICATIONS ABOUT 30 MINUTES AFTER HIS METFORMIN TO HELP KEEP HIM FROM GETTNIG NAUSEOUS. OBLIGED. NO COMPLAINTS/CONCERNS/QUESTIOSN AT THIS TIME. CL IN REACH, SRX2.
[2019-01-29] MEDS ORDERED: CIPRO500 MG PO (12:20)
--- NOTE | 2019-01-29 12:38 | NUR ---
I have reviewed this patient and I concur with the Shift Assessment completed by the Licensed Practical Nurse today this shift.
--- NOTE | 2019-01-29 12:41 | NUR ---
REFILLS OF CLARITIN DNIKOLAI ISSUED PER DR PACE. CALLED TO [facility], ALONG WITH TIERNEY ALBERTS, SPOKE WITH GREG.
--- NOTE | 2019-01-29 13:59 | NUR ---
GAVE PT DISCHARGE INSTRUCTIONS, SON TRANSLATED VIA PHONE
--- NOTE | 2019-01-29 15:34 | NUR ---
ESSCORTED OUT VIA WHEELCHAIR TO POV.
--- NOTE | 2019-01-30 08:22 | MORECARE ---
CASE MANAGEMENT DISCHARGE SUMMARY PATIENT: WALDEMAR EAGLE UNIT: [id number] ADM DATE: 01/23/19 AGE: 63 : 57 SEX: M ROOM/BED: D.2109 AUTHOR: BETTINA PAVON PHYSICIAN: REFERRING PHYSICIAN: RANDY SAMSON MD DATE OF SERVICE: 01/30/19 Discharge Plan Patient Name: WALDEMAR EAGLE Facility: [facility]:[place] : 1955 Planned Disposition: Home Anticipated Discharge Date: 01/25/19 Discharge Date: 01/29/2019 Expected LOS: 2 Initial Reviewer: [email or web address] Initial Review Date: 01/23/2019 Generated: 01/30/19 9:22 am Comments DCP- Discharge Planning Updated by [email or web address]: Nel De Leon on 01/23/19 11:[address] Patient Name: WALDEMAR EAGLE Admission Status: ER Accout number: [id number] Admission Date: 01-23-2019 : 1955 Admission Diagnosis: Attending: RANDY SAMSON Current LOS: 1 Anticipated DC Date: 01-25-2019 Planned Disposition: Home Primary Insurance: [employer] EXCHANGE Discharge Planning Comments: CM met with patient and his sister to complete initial dc planning assessment. The patient and his sister speak very limited Citizen Of [place] and we communicated through an remigio on their cell phones. CM educated patient on the CM role and verbal consent given by patient to complete assessment. CM verified patient's address, phone number, and emergency contact phone numbers. Patient lives at home with his sister. He is independent in his care at home. At discharge patient plans to return to his sisters and feels this is a safe discharge. CM discussed availability of home health, rehab services, and medical equipment. Patient denied known discharge needs at this time. Patient reports he will transport himself home at time of discharge. CM will continue to follow and will assist as needed with dc plans/needs. Wood Gang Sawyer: Nel De Leon RN, [facility] DCPIA - Discharge Planning Initial Assessment Updated by [email or web address]: Nel De Leon on 01/23/19 11:57 am * Is the patient Alert and Oriented? Yes * How many steps to enter\exit or inside your home? One * PCP Dr. Samson * Preadmission Environment Home with Family * ADLs Independent * List name and contact numbers for known caregivers / representatives who currently or will assist patient after discharge: Marylou Orellana - brother - [phone] Monicayuri Paul sister - [phone] * Verbal permission to speak to the caregivers and representatives has been obtained from the patient. Yes * Community resources currently utilized None * Additional services required to return to the preadmission environment? No * Can the patient safely return to the preadmission environment? Yes * Has this patient been hospitalized within the prior 30 days at any hospital? No Last DP export: 01/23/19 12:03 p Patient Name: WALDEMAR EAGLE Page 52466 at 0822 All edits/amendments must be made on the electronic document DICTATION DATE: 01/30/19821 CARPENTER CRADLE AND DOLLY: JULIETA 01/30/19821 RPT#: [id number] DC DATE:01/29/19 STATUS: DIS IN [facility] [address] [place] [address] END OF REPORT
[2019-01-30 15:09] LABS: FUNGUS MYCOLOGY CULTURE Preliminary report (())
[2019-02-02 09:10] LABS: FUNGUS MYCOLOGY CULTURE Preliminary report (())
[2019-02-03 13:10] LABS: FUNGUS CULTURE RESULT 1 Candida albicans (())
[2019-02-05 13:08] LABS: ACID FAST CULTURE Positive (()); ACID FAST SMEAR Positive (())
[2019-02-06 16:08] LABS: FUNGUS STAIN Final report (())
== END 2019-01-29 15:34 | disposition home or self-care (01) | DRG 178 ==
LOC: D.ER 07:46 → D.M2 09:48
PROVIDERS: Family Medicine; Internal Medicine Pulmonary Disease; ADMIT Family Medicine; ATTEND Family Medicine
DX: A31.0 Pulmonary mycobacterial infection (principal); E44.0 Moderate protein-calorie malnutrition; Z68.1 Body mass index [BMI] 19.9 or less, adult; J47.1 Bronchiectasis with (acute) exacerbation; J45.901 Unspecified asthma with (acute) exacerbation; J47.0 Bronchiectasis with acute lower respiratory infection; J30.9 Allergic rhinitis, unspecified; N40.0 Benign prostatic hyperplasia without lower urinary tract symptoms; J15.6 Pneumonia due to other Gram-negative bacteria; E11.9 Type 2 diabetes mellitus without complications

== ENCOUNTER → 2019-07-18 07:44 | Outpatient (CLI) | payer MEDICAID ==
[2019-01-27 11:08] VITALS: BMI 19.6
[~2019-07-18 07:44] MED LIST changes: +ALBUTEROL SULF8.5 GM INH; +CIPRO500 MG PO
[2019-07-18 08:15] LABS: BASOPHILS 0.2 % (0-2); EOSINOPHILS 0.2 % (0-7); HEMATOCRIT 42.5 % (42.0-54.0); HEMOGLOBIN 14.7 g/dL (13.5-17.5); IMMATURE GRANULOCYTES 0.2 % (0-5); LYMPHOCYTES 16.2 % (15-50); MCH 34.3 pg (26.0-34.0); MCHC 34.6 g/dL (31.0-37.0); MCV 99.1 fL (80.0-100.0); MEAN PLATELET VOLUME 8.4 fL (7.4-10.4); MONOCYTES 14.5 % (2-11); NEUTROPHILS 68.7 % (40-80); PLATELET COUNT 331 10x3/uL (130-400); RBC 4.29 10x6/uL (4.20-6.10); RDW 12.4 % (11.5-14.5); WBC 5.4 10x3/uL (4.8-10.8)
[2019-07-18 08:32] LABS: ALBUMIN 3.4 g/dL (3.4-5.0); ALKALINE PHOSPHATASE 93 U/L (46-116); ALT (SGPT) 26 U/L (10-68); BILIRUBIN - TOTAL 0.16 mg/dL (0.2-1.3); CALC OSMOLALITY 272 mosm/kg (275-300); CALCIUM 8.2 mg/dL (8.5-10.1); CARBON DIOXIDE 35.4 mmol/L (21.0-32.0); CHLORIDE - SERUM 99 mmol/L (98-107); CREATININE - SERUM 0.6 mg/dL (0.6-1.3); GLUCOSE 132 mg/dL (74-106); POTASSIUM - SERUM 3.9 mmol/L (3.5-5.1); PROTEIN - SERUM 7.9 g/dL (6.4-8.2); SODIUM 136 mmol/L (136-145); UREA NITROGEN 9 mg/dL (7-18); eGFR NON AFRICAN AMERICAN > 90 mL/min (90-120)
== END | disposition home or self-care (01) ==
LOC: D.RAD 07:44
PROVIDERS: ATTEND Internal Medicine Pulmonary Disease
DX: J44.9 Chronic obstructive pulmonary disease, unspecified (principal); A31.0 Pulmonary mycobacterial infection

== ENCOUNTER 2020-12-04 11:10 | Inpatient (IN) | payer MEDICARE ==
[~2020-12-04] VITALS: Ht 165.1 cm; Wt 41.0 kg
--- NOTE | 2020-12-04 11:25 | NUR ---
ARRIVED TO ROOM 2201 AT THIS TIME VIA WC AWAKE AND ALERT. RESP EVEN AND UNLABORED WITH NO DISTRESS NOTED. NO C/O VOICED AT THIS TIME. PT DOESN'T SPEAK ANY TAMAZIGHT. ASSESSMENT DONE. C/L IN REACH AT BEDSIDE.
[2020-12-04] MEDS ORDERED: MUCINEX600 MG PO (11:47)
[2020-12-04] MEDS ORDERED: SPIRIVA RESPIMAT4 GM INH (11:52)
[2020-12-04] MEDS ORDERED: IPRAT-ALBUT 0.5-3 ML UPD (12:02)
[2020-12-04 12:26] VITALS: BP 136/91
[2020-12-04 12:59] VITALS: BP 136/91; BMI 15.0
[2020-12-04 14:15] LABS: BASOPHILS 0.5 % (0-2); EOSINOPHILS 1.3 % (0-7); HEMATOCRIT 32.3 % (42.0-54.0); HEMOGLOBIN 10.8 g/dL (13.5-17.5); LYMPHOCYTES 3.6 % (15-50); MCH 31.2 pg (26.0-34.0); MCHC 33.3 g/dL (31.0-37.0); MCV 93.6 fL (80.0-100.0); MEAN PLATELET VOLUME 5.8 fL (7.4-10.4); MONOCYTES 8.9 % (2-11); NEUTROPHILS 85.7 % (40-80); RBC 3.45 10x6/uL (4.20-6.10); RDW 13.6 % (11.5-14.5)
[2020-12-04 14:22] LABS: CALC OSMOLALITY 261 mosm/kg (275-300); CALCIUM 8.1 mg/dL (8.5-10.1); CARBON DIOXIDE 30.5 mmol/L (21.0-32.0); CHLORIDE - SERUM 93 mmol/L (98-107); CREATININE - SERUM 0.7 mg/dL (0.6-1.3); POTASSIUM - SERUM 3.8 mmol/L (3.5-5.1); SODIUM 128 mmol/L (136-145); UREA NITROGEN 11 mg/dL (7-18); eGFR NON AFRICAN AMERICAN > 90 mL/min (90-120)
[2020-12-04 14:24] LABS: GLUCOSE 209 mg/dL (74-106)
[2020-12-04 14:28] LABS: ALBUMIN 2.2 g/dL (3.4-5.0); ALKALINE PHOSPHATASE 81 U/L (30-120); ALT (SGPT) 19 U/L (10-68); PROTEIN - SERUM 8.3 g/dL (6.4-8.2)
[2020-12-04 14:42] LABS: PLATELET COUNT 560 10x3/uL (130-400)
[2020-12-04 17:02] VITALS: BP 163/85
[2020-12-04 20:00] VITALS: BP 128/76
[2020-12-05] VITALS: BP 122/66
--- NOTE | 2020-12-05 01:56 | NUR ---
REC'D CHGE OF SHIFT WALKING ROUNDS SITTING ON SIDE OF BED.FAMILY MEMBER AT BEDSIDE.DENIES ANY PAIN AT PRESENT TIME.DOES C/O SOME SOB ON MINIMA ACTIVITY. DENIES ANY RESP. DIFFICULTIES AT PRESENT TIME. 02 SATS 93% ON ROOM AIR.WILL CONTINUE TO MONITOR FOR ANY CHGES. RESP, STATUS AND FOLLOW CURRENT PLAN OF CARE.
[2020-12-05 04:00] VITALS: BP 149/85
--- NOTE | 2020-12-05 06:50 | NUR ---
YFN DONE THIS AM FOR 20 MINUTES. PATIENT TOLERATED WELL.
[2020-12-05 07:20] LABS: CALC OSMOLALITY 267 mosm/kg (275-300); CALCIUM 8.7 mg/dL (8.5-10.1); CARBON DIOXIDE 32.9 mmol/L (21.0-32.0); CHLORIDE - SERUM 94 mmol/L (98-107); CREATININE - SERUM 0.7 mg/dL (0.6-1.3); GLUCOSE 115 mg/dL (74-106); HEMOGLOBIN 11.9 g/dL (13.5-17.5); MEAN PLATELET VOLUME 6.8 fL (7.4-10.4); POTASSIUM - SERUM 3.5 mmol/L (3.5-5.1); PRE-ALBUMIN 10.6 mg/dL (18.0-35.7); SODIUM 134 mmol/L (136-145); UREA NITROGEN 10 mg/dL (7-18); eGFR NON AFRICAN AMERICAN > 90 mL/min (90-120)
[2020-12-05 07:22] LABS: BASOPHILS 0.2 % (0-2); EOSINOPHILS 0.6 % (0-7); HEMATOCRIT 35.9 % (42.0-54.0); LYMPHOCYTES 7.6 % (15-50); MCH 31.2 pg (26.0-34.0); MCHC 33.1 g/dL (31.0-37.0); MCV 94.3 fL (80.0-100.0); MONOCYTES 8.8 % (2-11); NEUTROPHILS 82.8 % (40-80); RBC 3.81 10x6/uL (4.20-6.10); RDW 13.5 % (11.5-14.5)
[2020-12-05 07:32] LABS: PLATELET COUNT 380 10x3/uL (130-400); WBC 12.7 10x3/uL (4.8-10.8)
--- NOTE | 2020-12-05 08:00 | NUR ---
ALERT AND ORIENTED AND ABLE TO COMMUNICATE WITH ASSSIST OF RESPIRATORY CARE FACULTY PHONE. RESP EVEN WITH DYSPNEA W/O EXERTION. O2 SAT 97%RA. DIMINISHED TO BLQ ANTERIOR. UP ADLIB TO BATHROOM ATTEMPTED EDUCATION UNSUCCESSFUL WITH INCENTIVE SPIROMETRY. ENCOURAGED TO USE CALL LIGHT FOR ASSIST.
[2020-12-05 08:27] VITALS: BP 139/78
[2020-12-05 12:37] VITALS: BP 157/73
[2020-12-05 13:31] VITALS: Ht 165.1 cm; Wt 41.0 kg
--- NOTE | 2020-12-05 13:54 | MORECARE ---
CASE MANAGEMENT DISCHARGE SUMMARY PATIENT: WALDEMAR EAGLE UNIT: [id number] ADM DATE: 12/04/20 AGE: 65 : 56 SEX: M ROOM/BED: D.2201 AUTHOR: LIBRADO,DOC PHYSICIAN: REFERRING PHYSICIAN: RANDY SAMSON MD DATE OF SERVICE: 12/05/20 Case Management Discharge Planning Summary COMMENTS ENTERED DATE: 12/05/20 13:47 CT COMMENT TYPE: Discharge Planning REVIEWER: Whitney Sandhu SENT AN ORDER AND REFERRAL TO [facility] FOR THE RESP VEST THAT DR PACE ORDERED DCP REVIEW SUMMARY ANTICIPATED D/C DATE: EXPECTED LOS : CASE STATUS: DCP Initiated INITIAL REVIEW: 12/04/2020 INITIAL REVIEWER: Whitney Sandhu FINAL DISCHARGE DISPOSITION: : FINAL REVIEWER: FINAL REVIEW DATE: DCP Focus Questions & Answers QUESTION: ANSWER : PATIENT: WALDEMAR EAGLE ENCOUNTER: [id number] MEDICAL RECORD#: [id number] ADMISSION DATE: 12/04/2020 DISCHARGE DATE: ATTENDING MD: RANDY SANTILLAN : AGE: 65 MARITAL STATUS: M DC PLAN ID: [id number] FACILITY: [facility] PRINTED ON: 12/05/20 13:54 CT All edits/amendments must be made on the electronic document DICTATION DATE: 12/05/20 135 MANTEL CRAFTSMAN: JULIETA 12/05/20 135 RPT#: [id number] DC DATE: STATUS: ADM IN [facility] [address] [place] [address] END OF REPORT
[2020-12-05 16:50] VITALS: BP 139/77
--- NOTE | 2020-12-05 23:11 | NUR ---
ASSESSED AT THE BEGINNING OF THE SHIFT. PT IS ALERT AND ORIENTED BUT SPEAKS VERY LITTLE MARSHALLESE. SO FAR EVERYTHING HAS GONE WELL. HE TOOK HIS MEDS AND IS UP AD HILARIA TO THE BATHROOM. HIS BLOOD SUGAR WAS 132 AND DID NOT REQUIRE COVERAGE. FOUND ONE TIME GETTING TO PLUG OF BED BECAUSE IT WAS PUSHED OUT BY BED AND CONTROLS NOT WORKING. ASSISTED WITH THIS AND MADE SURE IT WAS WORKING AND BED WOULD NOT HIT PLUG AGAIN.
[2020-12-06 07:50] LABS: BASOPHILS 0.1 % (0-2); EOSINOPHILS 0 % (0-7); HEMATOCRIT 34.4 % (42.0-54.0); HEMOGLOBIN 11.4 g/dL (13.5-17.5); LYMPHOCYTES 7.1 % (15-50); MCH 31.2 pg (26.0-34.0); MCHC 33.2 g/dL (31.0-37.0); MCV 93.9 fL (80.0-100.0); MEAN PLATELET VOLUME 7.3 fL (7.4-10.4); MONOCYTES 2.9 % (2-11); NEUTROPHILS 89.9 % (40-80); RBC 3.67 10x6/uL (4.20-6.10); RDW 13.9 % (11.5-14.5)
[2020-12-06 08:04] LABS: PLATELET COUNT 479 10x3/uL (130-400); WBC 6.5 10x3/uL (4.8-10.8)
[2020-12-06 08:06] LABS: CALC OSMOLALITY 271 mosm/kg (275-300); CALCIUM 8.3 mg/dL (8.5-10.1); CARBON DIOXIDE 28.6 mmol/L (21.0-32.0); CHLORIDE - SERUM 96 mmol/L (98-107); CREATININE - SERUM 0.9 mg/dL (0.6-1.3); GLUCOSE 145 mg/dL (74-106); POTASSIUM - SERUM 3.7 mmol/L (3.5-5.1); SODIUM 134 mmol/L (136-145); UREA NITROGEN 14 mg/dL (7-18); eGFR NON AFRICAN AMERICAN 90 mL/min (90-120)
[2020-12-06 08:48] VITALS: BP 129/67
[2020-12-06 12:56] VITALS: BP 123/66
[2020-12-06 16:54] VITALS: BP 130/68
[2020-12-06 20:00] VITALS: BP 147/84
[2020-12-06 20:07] LABS: ACID FAST SMEAR Negative (()); AFB SPECIMEN PROCESSING Concentration (())
--- NOTE | 2020-12-06 23:19 | NUR ---
ASSESSED AT THE BEGINNING OF THE SHIFT. PT IS ALERT AND ORIENTED, BUT KNOWS VERY LITTLE MONTENEGRIN. HE IS UP TO THE BATHROOM AD HILARIA WITHOUT ASSIST AND IS ON ROOM AIR. RESP PUT THE VIBRATING VEST ON HIM WHICH HE COMPLETED ORDERED. ALL MEDS WERE TAKEN AND WHEN ASKED IF HER WAS HURTING HE INDICATED NO. HIS BLOOD SUGAR WAS 147 AND HE DID NOT NEED ANY REGULAR INSULIN. LANTUS WAS GIVEN. RESTING QUIET AT THIS TIME.
[2020-12-07 07:40] LABS: CALC OSMOLALITY 272 mosm/kg (275-300); CALCIUM 8.3 mg/dL (8.5-10.1); CARBON DIOXIDE 29.3 mmol/L (21.0-32.0); CHLORIDE - SERUM 99 mmol/L (98-107); GLUCOSE 156 mg/dL (74-106); POTASSIUM - SERUM 3.7 mmol/L (3.5-5.1); SODIUM 135 mmol/L (136-145); UREA NITROGEN 12 mg/dL (7-18)
[2020-12-07 07:41] LABS: BASOPHILS 0.1 % (0-2); CREATININE - SERUM 0.6 mg/dL (0.6-1.3); EOSINOPHILS 0 % (0-7); HEMATOCRIT 32.6 % (42.0-54.0); HEMOGLOBIN 11.1 g/dL (13.5-17.5); LYMPHOCYTES 2.8 % (15-50); MCH 31.8 pg (26.0-34.0); MCHC 34.1 g/dL (31.0-37.0); MCV 93.4 fL (80.0-100.0); MEAN PLATELET VOLUME 6.9 fL (7.4-10.4); MONOCYTES 2.5 % (2-11); NEUTROPHILS 94.6 % (40-80); PLATELET COUNT 464 10x3/uL (130-400); RBC 3.49 10x6/uL (4.20-6.10); RDW 13.7 % (11.5-14.5); eGFR NON AFRICAN AMERICAN > 90 mL/min (90-120)
[2020-12-07 08:00] LABS: WBC 9.2 10x3/uL (4.8-10.8)
[2020-12-07 09:47] VITALS: BP 151/83
[2020-12-07 13:56] VITALS: BP 142/88
--- NOTE | 2020-12-07 14:48 | NUR ---
ALERT AND ORIENTED WITH SLIGHT SHORMESS OF BREATH WITH MINIMAL EXERTION. ABLE TO DEMEONSTRATE PROPER TECHNIQUE WITH INCENTIVE SPIROMETRY. EXPIRATORY WHEEZE NOTED TO RLQ POSTERIOR. TYLENOL GIVEN FOR 6/10 PAIN IN RLQ CHEST AND EFFECTIVE 2/10. ENCOURAGED TO USE CALL LIGHT FOR ASSIST.
[2020-12-07 18:30] VITALS: BP 121/75
--- NOTE | 2020-12-07 19:17 | NUR ---
PATIENT RESTING IN BED WITH NO S/S OF DISTRESS AND DENIES NEEDS AT THIS TIME. BED IN LOWEST POSITION AND CALL LIGHT IN REACH. ENCOURAGED PATIENT TO CALL WITH NEEDS.
[2020-12-07 20:00] VITALS: BP 133/73
--- NOTE | 2020-12-07 20:12 | NUR ---
ADMINISTERED MEDS PER ORDERS. PATIENT GASPER WELL. ENCOURAGED PATIENT TO CALL WITH NEEDS.
[2020-12-08 05:00] VITALS: BP 154/80
[2020-12-08 06:16] LABS: BASOPHILS 0.1 % (0-2); EOSINOPHILS 0.1 % (0-7); HEMATOCRIT 36.7 % (42.0-54.0); HEMOGLOBIN 12.4 g/dL (13.5-17.5); MCH 31.8 pg (26.0-34.0); MCHC 33.9 g/dL (31.0-37.0); MCV 93.9 fL (80.0-100.0); MEAN PLATELET VOLUME 5.8 fL (7.4-10.4); MONOCYTES 7.1 % (2-11); NEUTROPHILS 87.7 % (40-80); RBC 3.91 10x6/uL (4.20-6.10); RDW 13.8 % (11.5-14.5); WBC 9.7 10x3/uL (4.8-10.8)
[2020-12-08 06:37] LABS: CALC OSMOLALITY 266 mosm/kg (275-300); CALCIUM 8.5 mg/dL (8.5-10.1); CARBON DIOXIDE 34.5 mmol/L (21.0-32.0); CHLORIDE - SERUM 97 mmol/L (98-107); CREATININE - SERUM 0.6 mg/dL (0.6-1.3); POTASSIUM - SERUM 3.3 mmol/L (3.5-5.1); SODIUM 134 mmol/L (136-145); UREA NITROGEN 13 mg/dL (7-18); eGFR NON AFRICAN AMERICAN > 90 mL/min (90-120)
[2020-12-08 06:39] LABS: GLUCOSE 86 mg/dL (74-106)
[2020-12-08 06:46] LABS: PLATELET COUNT 623 10x3/uL (130-400)
--- NOTE | 2020-12-08 11:58 | NUR ---
SPOKE TO PATIENT N REGARDS TO APPOINTMENTS IN LR TO SEE SPECIALISTS THAT HE MISSED LAST YEAR, PATIENT STATED THAT HE IS UNABLE TO DRIVE AND HIS FAMILY IS TOO BUSY TO TAKE HIM. ASKED PATIENT IF HE HAD A RIDE IF HE WOULD GO, PATIENT STATED YES ABSOLUTELY WILL RELAY MESSAGE TO [facility]GEMENT INSTRU[facility]
[2020-12-08 12:04] VITALS: BP 147/800
[2020-12-08 17:32] VITALS: BP 164/95
--- NOTE | 2020-12-08 19:20 | NUR ---
PATIENT RESTING IN BED WITH EYES CLOSED AND NO S/S OF DISTRESS. BED IN LOWEST POSITION AND CALL LIGHT IN REACH.
--- NOTE | 2020-12-08 21:08 | NUR ---
ADMINISTERED MEDS PER ORDERS. PATIENT GASPER WELL. ENCOURAGED TO CALL WITH NEEDS.
[2020-12-09 06:23] LABS: BASOPHILS 0.2 % (0-2); EOSINOPHILS 0 % (0-7); HEMATOCRIT 36.5 % (42.0-54.0); HEMOGLOBIN 12.6 g/dL (13.5-17.5); LYMPHOCYTES 5.4 % (15-50); MCH 32.3 pg (26.0-34.0); MCHC 34.5 g/dL (31.0-37.0); MCV 93.6 fL (80.0-100.0); MEAN PLATELET VOLUME 6.2 fL (7.4-10.4); MONOCYTES 8.3 % (2-11); NEUTROPHILS 86.1 % (40-80); PLATELET COUNT 637 10x3/uL (130-400); RDW 13.9 % (11.5-14.5); WBC 9.3 10x3/uL (4.8-10.8)
--- NOTE | 2020-12-09 07:10 | NUR ---
PT RESTING QUIETLY IN BED. RESP UNLABORED AT THIS TIME. DENIES PAIN AT THIS TIME. IV TO LEFT FOREARM WITH NS @ 30ML/HR INFUSING VIA PUMP. SITE WITHOUT REDNESS OR EDEMA. PT DENIES FURTHER NEEDS AT THIS TIME. CL WITHIN REACH. ENCOURAGED TO CALL WITH NEEDS. CONTINUE POC
[2020-12-09 07:11] LABS: CALC OSMOLALITY 267 mosm/kg (275-300); CALCIUM 8.5 mg/dL (8.5-10.1); CARBON DIOXIDE 35.1 mmol/L (21.0-32.0); CHLORIDE - SERUM 97 mmol/L (98-107); CREATININE - SERUM 0.7 mg/dL (0.6-1.3); GLUCOSE 83 mg/dL (74-106); POTASSIUM - SERUM 3.7 mmol/L (3.5-5.1); SODIUM 134 mmol/L (136-145); UREA NITROGEN 15 mg/dL (7-18); eGFR NON AFRICAN AMERICAN > 90 mL/min (90-120)
[2020-12-09 08:51] VITALS: BP 170/95
[2020-12-09 12:37] VITALS: BP 168/98
[2020-12-09] MEDS ORDERED: DIFLUCAN200 MG PO (15:24)
[2020-12-09] MEDS ORDERED: LEVOFLOXACIN500 MG PO (15:24)
[2020-12-09] MEDS ORDERED: CLINDAMYCIN HC300 MG PO (15:26)
[2020-12-09] MEDS ORDERED: STERAPRED DS 1210 MG PO (15:29)
--- NOTE | 2020-12-09 19:30 | NUR ---
PATIENT RESTING IN BED AND DENIES NEEDS AT THIS TIME. BED IN LOWEST POSITION AND CALL LIGHT IN REACH. ENCOURAGED PATIENT TO CALL WITH NEEDS.
[2020-12-09 20:00] VITALS: BP 151/83
--- NOTE | 2020-12-09 20:22 | NUR ---
ADMINISTERED MEDS PER ORDERS. PATIENT GASPER WELL. ENCOURAGED TO CALL WITH NEEDS.
[2020-12-10] VITALS: BP 162/87
[2020-12-10 04:00] VITALS: BP 152/72
--- NOTE | 2020-12-10 05:08 | NUR ---
PATIENT GLUCOSE, 46. GAVE PATIENT A SNACK AND MILK
--- NOTE | 2020-12-10 07:22 | NUR ---
RESTING IN BED WITH EYES CLOSED, EASILY AROUSED TO SPEECH. IV LOCATED TO LEFT FOREARM CURRENTLY SL. NO CURRENT S/S OF DISTRESS AT THIS TIME, PT DENIES CURRENT NEEDS, WILL CONT TO MONITOR.
[2020-12-10 08:36] VITALS: BP 135/88
--- NOTE | 2020-12-10 10:30 | NUR ---
FSBS CHECK WAS 251 REFUSED INSULIN,"GOING HOME NOW", BROTHER REFUSED WHEELCHAIR STATING "HE CAN WALK FINE TO CAR" IV OUT CATHETER TIP IN PLACE, NO CONCERNS NOTED.
--- NOTE | 2020-12-10 10:43 | MORECARE ---
CASE MANAGEMENT DISCHARGE SUMMARY PATIENT: WALDEMAR EAGLE UNIT: [id number] ADM DATE: 12/04/20 AGE: 65 : 56 SEX: M ROOM/BED: D.2201 AUTHOR: LBIRADO,DOC PHYSICIAN: REFERRING PHYSICIAN: RANDY SAMSON MD DATE OF SERVICE: 12/10/20 Case Management Discharge Planning Summary COMMENTS ENTERED DATE: 12/05/20 13:47 CT COMMENT TYPE: Discharge Planning REVIEWER: Whitney Sandhu SENT AN ORDER AND REFERRAL TO [facility] FOR THE RESP VEST THAT DR PACE ORDERED DCP REVIEW SUMMARY ANTICIPATED D/C DATE: EXPECTED LOS : CASE STATUS: DCP Initiated INITIAL REVIEW: 12/04/2020 INITIAL REVIEWER: Whitney Sandhu FINAL DISCHARGE DISPOSITION: : FINAL REVIEWER: FINAL REVIEW DATE: DCP Focus Questions & Answers QUESTION: ANSWER : PATIENT: WALDEMAR EAGLE ENCOUNTER: [id number] MEDICAL RECORD#: [id number] ADMISSION DATE: 12/04/2020 DISCHARGE DATE: 12/10/2020 ATTENDING MD: RANDY SANTILLAN : AGE: 65 MARITAL STATUS: M DC PLAN ID: [id number] FACILITY: [facility] PRINTED ON: 12/10/20 10:43 CT All edits/amendments must be made on the electronic document DICTATION DATE: 12/10/203 MEDICAL LABORATORY TECHNICIAN: JULIETA 12/10/20 1043 RPT#: [id number] DC DATE:12/10/20 STATUS: DIS IN [facility] [id number] [place] [address] END OF REPORT
--- NOTE | 2020-12-10 13:11 | MORECARE ---
CASE MANAGEMENT DISCHARGE SUMMARY PATIENT: WALDEMAR EAGLE UNIT: [id number] ADM DATE: 12/04/20 AGE: 65 : 57 SEX: M ROOM/BED: D.2201 AUTHOR: LIBRADO,DOC PHYSICIAN: REFERRING PHYSICIAN: RANDY SAMSON MD DATE OF SERVICE: 12/10/20 Case Management Discharge Planning Summary COMMENTS ENTERED DATE: 12/10/20 13:05 CT COMMENT TYPE: Discharge Planning REVIEWER: Whitney Sandhu LATE ENTRY 12/10/20 @ 1000 PATIENT'S BROTHER IN ROOM, IMM SERVED AND EXPLAINED. PATIENT LIVES AT [place] ON [address] HIS BROTHERS NUMBER IS [phone] PER MONSE WITH [facility], HIS VEST WILL BE DELIVERED AND SET UP TO HIS HOME TOMORROW IT WAS ORDERED THIS PAST WEDNESDAY. I EXPLAINED THIS TO HIS BROTHER PENNIE [phone] ( BROTHER) I CALLED MONSE TO LET HER KNOW ABOUT THE APARTMENT NUMBER ENTERED DATE: 12/05/20 13:47 CT COMMENT TYPE: Discharge Planning REVIEWER: Whitney Sandhu SENT AN ORDER AND REFERRAL TO [facility] FOR THE RESP VEST THAT DR PACE ORDERED DCP REVIEW SUMMARY ANTICIPATED D/C DATE: EXPECTED LOS : CASE STATUS: DCP Initiated INITIAL REVIEW: 12/04/2020 INITIAL REVIEWER: Whitney Sandhu FINAL DISCHARGE DISPOSITION: : FINAL REVIEWER: FINAL REVIEW DATE: DCP Focus Questions & Answers QUESTION: ANSWER : PATIENT: WALDEMAR EAGLE ENCOUNTER: [id number] MEDICAL RECORD#: [id number] ADMISSION DATE: 12/04/2020 DISCHARGE DATE: 12/10/2020 ATTENDING MD: RANDY SANTILLAN : AGE: 65 MARITAL STATUS: M DC PLAN ID: [id number] FACILITY: [facility] PRINTED ON: 12/10/20 13:11 CT All edits/amendments must be made on the electronic document DICTATION DATE: 12/10/20 1311 LEAD CLINICAL RESEARCH COORDINATOR: JULIETA 12/10/20 1311 RPT#: [id number] DC DATE:12/10/20 STATUS: DIS IN [facility] [address] [place] [address] END OF REPORT
== END 2020-12-10 10:31 | disposition home or self-care (01) | DRG 190 ==
LOC: D.MS 11:10
PROVIDERS: Internal Medicine Pulmonary Disease; ADMIT Family Medicine; ATTEND Family Medicine
DX: J47.0 Bronchiectasis with acute lower respiratory infection (principal); E43 Unspecified severe protein-calorie malnutrition; Z68.1 Body mass index [BMI] 19.9 or less, adult; E87.1 Hypo-osmolality and hyponatremia; J18.9 Pneumonia, unspecified organism; A31.0 Pulmonary mycobacterial infection; E11.9 Type 2 diabetes mellitus without complications; J47.1 Bronchiectasis with (acute) exacerbation; D64.9 Anemia, unspecified; G25.81 Restless legs syndrome

== ENCOUNTER → 2020-12-27 09:32 | Outpatient (CLI) | payer MEDICARE ==
[2020-12-05 13:31] VITALS: BMI 15.0
[~2020-12-27 09:32] MED LIST changes: +CLINDAMYCIN HC300 MG PO; +DIFLUCAN200 MG PO; +IPRAT-ALBUT 0.5-3 ML UPD; +LEVOFLOXACIN500 MG PO; +MUCINEX600 MG PO; +SPIRIVA RESPIMAT4 GM INH; +STERAPRED DS 1210 MG PO
== END | disposition home or self-care (01) ==
LOC: D.LAB 09:32
PROVIDERS: ATTEND Nurse Practitioner Family
DX: J47.9 Bronchiectasis, uncomplicated (principal); Z11.52 Encounter for screening for COVID-19